=== PATIENT | male | born 1955 | race Caucasian/White ===

== ENCOUNTER 2021-01-14 08:13 | Emergency (ER) | payer BC, MEDICARE ==
[2021-01-14] MEDS ORDERED: Aspirin 81 MG Tab.Chew PO ONE (08:44)
[2021-01-14] MEDS ORDERED: Alum Hydrox/Mag Hydrox/Simeth 15 ML, Lidocaine 2% 15 ML PO ONE ×2 (08:45)
--- NOTE | 2021-01-14 08:48 | EDM.PDOC ---
ED HPI GENERAL MEDICAL PROBLEM - General Chief Complaint: General Stated Complaint: SHARP PAIN STERNUM TO BACK, CHEST PRESSURE Time Seen by Provider: 01/14/21 08:40 Source of Information: Reports: Patient, Old Records, RN Notes Reviewed History Limitations: Reports: No Limitations - History of Present Illness INITIAL COMMENTS - FREE TEXT/NARRATIVE: 65-year-old gentleman presents emergency department a complaint of chest pain, he states that chest pain for couple of days more at night than during the day he seems to notice it more after he eats he had pretty severe chest pain last night and chest pain persisted this morning he describes it mainly in the center of his chest goes into the back sharp stabbing in nature. There is no nausea no vomiting no shortness of breath no diaphoresis he does have a reflux history no coronary artery disease history no tobacco use Right Chest Pain Score (Numeric/FACES): 4 - Related Data Allergies Allergy/AdvReac Type Severity Reaction Status Date / Time No Known Allergies Allergy Verified 01/14/21 08:32 Home Meds: Home Meds Finasteride 1 mg PO DAILY 03/10/16 [History] Gabapentin [Neurontin] 800 mg PO TID 03/10/16 [History] tadalafiL [Cialis] 2.5 mg PO ASDIRECTED PRN 03/10/16 [History] Past Medical History HEENT History: Reports: Cataract Respiratory History: Reports: Sleep Apnea Gastrointestinal History: Reports: GERD Genitourinary History: Reports: Prostate Disorder Neurological History: Reports: Neuropathy, Peripheral Endocrine/Metabolic History: Reports: Hypothyroidism Oncologic (Cancer) History: Reports: Prostate - Infectious Disease History Infectious Disease History: Reports: Chicken Pox - Past Surgical History HEENT Surgical History: Reports: Cataract Surgery GI Surgical History: Reports: None Male Surgical History: Reports: Prostate Biopsy, Prostatectomy Musculoskeletal Surgical History: Reports: None Social & Family History - Tobacco Use Tobacco Use Status *Q: Never Tobacco User - Caffeine Use Caffeine Use: Reports: Coffee - Recreational Drug Use Recreational Drug Use: No ED ROS GENERAL - Review of Systems Review Of Systems: See Below Constitutional: Reports: No Symptoms HEENT: Reports: No Symptoms Respiratory: Reports: No Symptoms Cardiovascular: Reports: Chest Pain GI/Abdominal: Reports: No Symptoms ED EXAM, GENERAL - Physical Exam Exam: See Below Exam Limited By: No Limitations General Appearance: Alert, WD/WN, No Apparent Distress Respiratory/Chest: No Respiratory Distress, Lungs Clear, Normal Breath Sounds, No Accessory Muscle Use, Chest Non-Tender Cardiovascular: Regular Rate, Rhythm, No Murmur GI/Abdominal: Soft, Non-Tender Course - Vital Signs Last Recorded V/S: Last Vital Signs Temp 97.0 F 01/14/21 08:24 Pulse 57 L 01/14/21 08:24 Resp 16 01/14/21 08:24 BP 143/73 H 01/14/21 08:24 Pulse Ox 95 01/14/21 08:24 - Orders/Labs/Meds Orders: Active Orders 24 hr Category Date Time Status Cardiac Monitoring [RC] .As Directed Care 01/14/21 08:44 Active EKG Documentation Completion [RC] ASDIRECTED Care 01/14/21 08:45 Active Chest 2V [CR] Stat Exams 01/14/21 08:45 Taken EKG 12 Lead [EK] Stat Ther 01/14/21 08:45 Ordered Labs: Laboratory Tests 01/14/21 01/14/21 Range/Units 08:55 08:55 WBC 5.6 (4.5-11.0) K/uL RBC 5.26 (4.30-5.90) M/uL Hgb 14.9 (12.0-15.0) g/dL Hct 43.9 (40.0-54.0) % MCV 84 (80-98) fL MCH 28 (27-31) pg MCHC 34 (32-36) % Plt Count 252 (150-400) K/uL Neut % (Auto) 68 H (36-66) % Lymph % (Auto) 24 (24-44) % Mcnairy % (Auto) 7 H (2-6) % Eos % (Auto) 1 L (2-4) % Baso % (Auto) 0 (0-1) % Sodium 143 (140-148) mmol/L Potassium 4.2 (3.6-5.2) mmol/L Chloride 106 (100-108) mmol/L Carbon Dioxide 26 (21-32) mmol/L Anion Gap 10.8 (5.0-14.0) mmol/L BUN 20 H (7-18) mg/dL Creatinine 1.1 (0.8-1.3) mg/dL Est Cr Clr Drug Dosing 73.48 mL/min Estimated GFR (MDRD) > 60 (>60) Glucose 123 H (74-106) mg/dL Calcium 9.0 (8.5-10.1) mg/dL Total Bilirubin 0.6 (0.2-1.0) mg/dL AST 20 (15-37) U/L ALT 28 (12-78) U/L Alkaline Phosphatase 67 (46-116) U/L Troponin I < 0.017 (0.000-0.056) ng/mL Total Protein 6.9 (6.4-8.2) g/dL Albumin 4.0 (3.4-5.0) g/dL Globulin 2.9 (2.3-3.5) g/dL Albumin/Globulin Ratio 1.4 (1.2-2.2) Meds: Medications Discontinued Medications Generic Name Dose Route Start Last Admin Trade Name Freq PRN Reason Stop Dose Admin Aspirin 324 mg 01/14/21 08:44 01/14/21 08:50 Aspirin PO 01/14/21 08:45 324 mg ONETIME ONE Administration Al Hydroxide/Mg Hydroxide 15 0 ml 01/14/21 08:45 01/14/21 08:50 ml/ Lidocaine HCl 15 ml PO 01/14/21 08:46 30 ml ONETIME ONE Administration Departure - Departure Time of Disposition: 09:59 Disposition: Home, Self-Care 01 Condition: Fair Clinical Impression: Acid reflux Qualifiers: Esophagitis presence: esophagitis presence not specified Qualified Code(s): K21.9 - Gastro-esophageal reflux disease without esophagitis - Discharge Information Instructions: Gastroesophageal Reflux Disease, Adult, [id number], Food Choices for Gastroesophageal Reflux Disease, Adult, [id number] Referrals: Donell Gabriel NP [Primary Care Provider] - Forms: ED Department Discharge Additional Instructions: Recommend trying Zantac as needed for chest pain reflux type symptoms, recommend starting a food journal to see if you can identify triggers, keep your follow-up appointment with your primary care. Call or return to the emergency department worsening symptoms Sepsis Event Note (ED) - Evaluation Sepsis Screening Result: No Definite Risk - Focused Exam Vital Signs: Vital Signs Temp Pulse Resp BP Pulse Ox 01/14/21 08:24 97.0 F 57 L 16 143/73 H 95 - My Orders Last 24 Hours: My Active Orders 01/14/21 08:44 Cardiac Monitoring [RC] .As Directed 01/14/21 08:45 EKG Documentation Completion [RC] ASDIRECTED Chest 2V [CR] Stat EKG 12 Lead [EK] Stat - Assessment/Plan Last 24 Hours: My Active Orders 01/14/21 08:44 Cardiac Monitoring [RC] .As Directed 01/14/21 08:45 EKG Documentation Completion [RC] ASDIRECTED Chest 2V [CR] Stat EKG 12 Lead [EK] Stat Plan: Assessment Acuity = acute Site and laterality = gastroesophageal reflux disease Etiology = unknown Manifestations = epigastric pain chest pain now resolved Location of injury = Home Lab values = CBC, CMP, troponin all within normal limits EKG demonstrates a sinus rhythm no significant ST elevations or depressions or T wave inversions, chest x-ray I did review films myself I cannot appreciate any acute process, the official read from radiology is pending Plan I did review lab work EKG chest x-ray results with him he had good relief with GI cocktail he is going to try a food journal as well as Zantac [id number] as needed he has a follow-up appointment with his primary care at which time he will discuss his reflux This note was dictated using [employer] voice recognition software please call with any questions on syntax or grammar.
[2021-01-14 10:08] VITALS: BP 132/62; PULSE 52
--- NOTE | 2021-01-16 09:16 | CR ---
CHEST: 2 view CLINICAL HISTORY:Chest pain COMPARISON:None FINDINGS: The heart size, pulmonary vascularity and hilar structures are normal. No infiltrate effusion or pneumothorax is seen. IMPRESSION: No acute cardiopulmonary process.
== END 2021-01-14 10:16 | disposition home or self-care (01) ==
LOC: JP.ED 08:13
DX: K21.9 Gastro-esophageal reflux disease without esophagitis (principal); E03.9 Hypothyroidism, unspecified; G62.9 Polyneuropathy, unspecified; N42.9 Disorder of prostate, unspecified; Z79.899 Other long term (current) drug therapy
CPT/HCPCS: 36415; 71046; 80053; 84484; 85025; 93005; 99283; 99285; A9270

== ENCOUNTER 2021-11-21 14:55 | Emergency (ER) | payer MEDICARE ==
[2021-11-21] MEDS ORDERED: Proparacaine 0.5% Ophth Soln 15 ML Bottle EYEBOTH STA (15:01)
[2021-11-21 15:18] VITALS: BP 133/52; PULSE 52
--- NOTE | 2021-11-21 15:36 | EDM.PDOC ---
ED HPI GENERAL MEDICAL PROBLEM - General Chief Complaint: Eye Problems Stated Complaint: LEFT EYE BATTERY ACID Time Seen by Provider: 11/21/21 15:35 Source of Information: Reports: Patient History Limitations: Reports: No Limitations - History of Present Illness INITIAL COMMENTS - FREE TEXT/NARRATIVE: 66-year-old male presents to the emergency department for evaluation of left eye pain. Approximately 1 hour prior to arrival, he splashed battery acid in his left eye while trying to get the Back on a car battery. Immediately after that, he flushed his eye out with water and normal saline. He did this for approximately 3 minutes. This did help reduce his discomfort. Pain is currently 5 out of 10. He states that his vision is somewhat blurry. He does have some irritation and pain around his left eye. He has history of cataract surgery. Does not wear contact lenses. Denies any problems with eye pressures. Patient has no other complaints. Denies a foreign body sensation. Denies intense photophobia. - Related Data Allergies Allergy/AdvReac Type Severity Reaction Status Date / Time No Known Allergies Allergy Verified 11/21/21 15:55 Home Meds: Home Meds Finasteride 1 mg PO DAILY 03/10/16 [History] Gabapentin [Neurontin] 800 mg PO TID 03/10/16 [History] tadalafiL [Cialis] 2.5 mg PO ASDIRECTED PRN 03/10/16 [History] Erythromycin Base [Erythromycin 0.5% Ophth Oint] 1 applic OP DAILY #1 tube 11/21/21 [Rx] Polymyxin B Sulf/Trimethoprim [Polytrim Eye Drops] 1 - 2 drop EYELF Q2H 5 Days #1 bottle 11/21/21 [Rx] Past Medical History HEENT History: Reports: Cataract Cardiovascular History: Reports: None Respiratory History: Reports: Sleep Apnea Gastrointestinal History: Reports: GERD Genitourinary History: Reports: Prostate Disorder Musculoskeletal History: Reports: None Neurological History: Reports: Neuropathy, Peripheral Psychiatric History: Reports: None Endocrine/Metabolic History: Reports: Hypothyroidism Hematologic History: Reports: None Immunologic History: Reports: None Oncologic (Cancer) History: Reports: Prostate Dermatologic History: Reports: None - Infectious Disease History Infectious Disease History: Reports: Chicken Pox - Past Surgical History HEENT Surgical History: Reports: Cataract Surgery GI Surgical History: Reports: None Male Surgical History: Reports: Prostate Biopsy, Prostatectomy Musculoskeletal Surgical History: Reports: None Social & Family History - Caffeine Use Caffeine Use: Reports: Coffee ED ROS GENERAL - Review of Systems Review Of Systems: See Below HEENT: Reports: Eye Pain, Vision Change. Denies: Contact Lenses, Eye Discharge, Glasses ED EXAM GENERAL W FULL EYE - Physical Exam Exam: See Below Text/Narrative:: Left eye has conjunctival irritation. Cornea is clear. Pupils are equal. Extraocular movements are intact. No discharge. Lashes are intact. Lids are normal. No significant periorbital swelling. Fluorescein examination was negative. Upper eyelid was everted to look for foreign body and this was negative. Slit lamp examination performed and this was unremarkable. Eye was irrigated with saline copiously. pH testing was complicated by not having pH paper and test drip that would normally be used for urinalysis was swabbed with a cotton-tipped applicator that was catching effluent from eye irrigation. Visual acuity was 20/20 on right and 20/50 on left. This was apparently a change for the patient. He was breathing comfortably. His exam was otherwise unremarkable. Exam Limited By: No Limitations General Appearance: Alert, WD/WN, No Apparent Distress Eye Exam: Left Eye: Vision Changes Visual Acuity (R) 20/: 20 Visual Acuity (L) 20/: 50 With Correction: No Eyelids: Left: Lid Everted for Exam, Bilateral: Normal Appearance Conjunctiva & Sclera: Left: Injected Cornea Exam: Left: Normal Appearance, Examined with Flourescein Extraocular Movements: Bilateral: Intact Pupils: Normal Accommodation Pupillary Size: Bilateral: 4 mm Pupillary Reaction: Bilateral: Brisk Anterior Chamber: Bilateral: Normal Appearance Posterior Chamber: Bilateral: Normal Funduscopic Course - Vital Signs Last Recorded V/S: Last Vital Signs Temp 97.3 F 11/21/21 15:54 Pulse 52 L 11/21/21 15:54 Resp 16 11/21/21 15:54 BP 133/52 L 11/21/21 15:54 Pulse Ox 96 11/21/21 15:54 - Orders/Labs/Meds Meds: Medications Discontinued Medications Generic Name Dose Route Start Last Admin Trade Name Freq PRN Reason Stop Dose Admin Proparacaine HCl 1 ml 11/21/21 15:01 11/21/21 15:59 Proparacaine 0.5% Ophth Soln 15 Ml Bottle EYEBOTH 11/21/21 15:02 2 drop NOW STA Administration Departure - Departure Time of Disposition: 16:32 Disposition: Home, Self-Care 01 Clinical Impression: Conjunctivitis, Eye irritation, Chemical burn due to acid, conjunctiva, left, Visual acuity reduced - Discharge Information *PRESCRIPTION DRUG MONITORING PROGRAM REVIEWED*: Not Applicable *COPY OF PRESCRIPTION DRUG MONITORING REPORT IN PATIENT MAXIM: Not Applicable Prescriptions: Erythromycin Base [Erythromycin 0.5% Ophth Oint] 1 applic OP DAILY #1 tube Polymyxin B Sulf/Trimethoprim [Polytrim Eye Drops] 1 - 2 drop EYELF Q2H 5 Days #1 bottle Instructions: Chemical Burn of the Eyes, Adult Referrals: Donell Gabriel, [facility] [Primary Care Provider] - Forms: ED Department Discharge Additional Instructions: I strongly recommended that the patient be seen by an customer experience professional within the next 24 hours. Sepsis Event Note (ED) - Focused Exam Vital Signs: Vital Signs Temp Pulse Resp BP Pulse Ox 11/21/21 15:54 97.3 F 52 L 16 133/52 L 96 11/21/21 15:08 97.3 F 52 L 16 133/52 L 96 - Problem List Review Problem List Initiated/Reviewed/Updated: Yes - Assessment/Plan Assessment:: 1. Left eye chemical conjunctivitis caused from battery acid 2. Reduced visual acuity, left eye secondary to #1 Plan: Left eye was irrigated copiously with normal saline as instructed by poison control. No signs of corneal abrasion or ulceration. Erred on the side of caution by recommending topical antibiotics for this patient due to his change in visual acuity. Recommend eye examination within 24 hours. In the meantime, start Polytrim 1 to 2 drops to left eye every 2 hours while awake and transition to erythromycin eye ointment 1/2 to 1 cm to lower eyelid before bed. Patient is to return immediately if he has any problems or call if he has any questions or concerns.
== END 2021-11-21 16:54 | disposition home or self-care (01) ==
LOC: JP.ED 14:55
DX: T54.2X1A Toxic effect of corrosive acids and acid-like substances, accidental (unintentional), initial encounter (principal); T26.62XA Corrosion of cornea and conjunctival sac, left eye, initial encounter; H10.9 Unspecified conjunctivitis; H57.89 Other specified disorders of eye and adnexa
CPT/HCPCS: 99283; A9270